=== PATIENT | male | born 1955 | race Caucasian/White ===

== ENCOUNTER 2016-07-18 11:58 | Emergency (ER) | payer MEDICAID ==
[~2016-07-18] VITALS: Ht 157.5 cm; Wt 77.1 kg
[2016-07-18 12:12] VITALS: BP 159/76; PULSE 77; RESP 16; TEMP 98.2; O2SAT 99
--- NOTE | 2016-07-18 12:14 | NUR ---
AMBULATED TO BED 5
--- NOTE | 2016-07-18 12:15 | NUR ---
DR. SALAS AT BEDSIDE
--- NOTE | 2016-07-18 12:20 | NUR ---
Pt presesnt to ed c/o worsening chronic R foot pain from old injury. pT has no acute distress noted.Pt ambulates w/limp.
--- NOTE | 2016-07-18 13:58 | NUR ---
Pt tolerated ortho shoe and gerard wrap.
--- NOTE | 2016-07-18 14:31 | NUR ---
Patient given written and verbal discharge instructions and verbalizes understanding. ER MD discussed with patient the results and treatment provided. Given copies of tests performed in ER. Patient in stable condition. ID arm band removed. Rx of IBUPROFEN, given. Patient educated on pain management and to follow up with PMD. Pain Scale 0/10. Opportunity for questions provided and answered.
[2016-07-18 14:33] VITALS: BP 159/76; PULSE 77; RESP 16; TEMP 98.2; O2SAT 99
== END 2016-07-18 14:31 | disposition home or self-care (01) ==
LOC: SED 11:58
DX: S90.32XA Contusion of left foot, initial encounter (principal); W20.8XXA Other cause of strike by thrown, projected or falling object, initial encounter; Y93.89 Activity, other specified; Y99.8 Other external cause status; Y92.89 Other specified places as the place of occurrence of the external cause
CPT/HCPCS: 99284

== ENCOUNTER 2016-11-02 19:48 | Emergency (ER) | payer MEDICAID ==
[~2016-11-02] VITALS: Ht 167.6 cm; Wt 77.1 kg
[2016-11-02 20:11] VITALS: BP_SYST 128
--- NOTE | 2016-11-02 20:35 | NUR ---
Patient to ER bed H1 to gown for evaluation. Side rails up. Report given to Brian
--- NOTE | 2016-11-02 20:37 | NUR ---
Patient arrived to ED a/o x 4 with c/o pain to the left middle finger. Presents with swelling and bruising to the second knuckle. Patient reports having finger bent back while at work. PMS present to the affected extremitity. Limited range of motion. Reports 5/10 pain. Will continue to monitor.
--- NOTE | 2016-11-02 20:40 | NUR ---
ED HEAVY EQUIPMENT OPERATOR/PAVER Paige at bedside for medical evaluation.
[2016-11-02] MEDS ORDERED: ACETAMINOPHEN 500 MG TABLET PO ONE (20:45)
--- NOTE | 2016-11-02 21:00 | NUR ---
ED DIETARY SERVER Paige at bedside for reassessment.
[2016-11-02 21:17] VITALS: BP_SYST 121
--- NOTE | 2016-11-02 21:17 | NUR ---
Patient given written and verbal discharge instructions and verbalizes understanding. ER MD discussed with patient the results and treatment provided. Patient in stable condition. ID arm band removed. Rx of tylenol given. Patient educated on pain management and to follow up with PMD. Pain Scale 2/10 tolerable for patient. Opportunity for questions provided and answered.
== END 2016-11-02 21:17 | disposition home or self-care (01) ==
LOC: SED 19:48
DX: S63.633A Sprain of interphalangeal joint of left middle finger, initial encounter (principal); X50.9XXA Other and unspecified overexertion or strenuous movements or postures, initial encounter; Y93.89 Activity, other specified; Y92.89 Other specified places as the place of occurrence of the external cause; Y99.8 Other external cause status
CPT/HCPCS: 99284

== ENCOUNTER 2017-07-11 09:57 | Emergency (ER) | payer MEDICAID ==
[~2017-07-11] VITALS: Ht 165.1 cm; Wt 74.8 kg
[2017-07-11 10:00] VITALS: BP_SYST 136
--- NOTE | 2017-07-11 10:00 | NUR ---
BROUGHT BACK TO BED #5 AND TRIAGED. REPORT GIVEN TO AUBREE
--- NOTE | 2017-07-11 10:02 | NUR ---
Pt complains of cough for three weeks. Pt is AAO x 4 and ambulatory. Pt denies fever, nausea, vomiting, and/or diarrhea. No other injuries/complaints per patient or noted.
--- NOTE | 2017-07-11 10:09 | NUR ---
ER Dr. King at bedside examining patient.
[2017-07-11] MEDS ORDERED: ALBUTEROL SULFATE 0.083% 2.5 MG/3 ML VIAL.NEB IH ONE (10:30)
[2017-07-11] MEDS ORDERED: IPRATROPIUM BROM 0.5 MG/2.5 ML VIAL.NEB (ATROVENT) IH ONE (10:30)
--- NOTE | 2017-07-11 10:31 | NUR ---
RT at patient bedside administering breathing treatment. Pt tolerated well.
[2017-07-11 11:27] VITALS: BP_SYST 129
--- NOTE | 2017-07-11 11:27 | NUR ---
Patient given written and verbal discharge instructions and verbalizes understanding. ER MD discussed with patient the results and treatment provided. Patient in stable condition. ID arm band removed. Rx of Zithromax and Robitussin given. Patient educated on pain management and to follow up with PMD. Pain Scale 0. Opportunity for questions provided and answered. Medication side effect fact sheet provided.
== END 2017-07-11 11:27 | disposition home or self-care (01) ==
LOC: SED 09:57
DX: J20.9 Acute bronchitis, unspecified (principal)
CPT/HCPCS: 36415; 71045; 86710; 94640; 99285

== ENCOUNTER 2018-06-03 14:36 | Emergency (ER) | payer MEDICAID ==
[~2018-06-03] VITALS: Ht 162.6 cm; Wt 72.6 kg
[2018-06-03 14:57] VITALS: BP_SYST 130
[2018-06-03] MEDS ORDERED: NACL 0.9% 1,000 ML IV ONE (15:18)
[2018-06-03 15:49] LABS: BASOPHILS % (AUTO) 0.5 % (0.0-2.0); EOSINOPHILS # (AUTO) 0.1 K/uL (0.0-0.4); EOSINOPHILS % (AUTO) 0.8 % (0.0-4.0); HEMATOCRIT 35.8 % (36-54); HEMOGLOBIN 11.7 g/dL (14.0-18.0); LYMPHOCYTES # (AUTO) 3.3 K/uL (1.0-5.5); LYMPHOCYTES % (AUTO) 45.8 % (20.5-51.5); MEAN CORPUSCULAR HEMOGLOBIN 28 pg (27-31); MEAN CORPUSCULAR HGB CONC 33 % (32-36); MEAN CORPUSCULAR VOLUME 85 fL (79.0-98.0); MONOCYTES # (AUTO) 0.5 K/uL (0.0-1.0); MONOCYTES % (AUTO) 6.9 % (1.7-9.3); NEUTROPHILS # (AUTO) 3.4 K/uL (1.8-7.7); PLATELET COUNT (AUTO) 163 K/uL (130-430); RED BLOOD CELL COUNT(AUTO) 4.23 MIL/uL (4.2-6.2); RED CELL DISTRIBUTION WIDTH 14.5 % (9.0-15.0); WHITE BLOOD COUNT (AUTO) 7.3 K/uL (4.8-10.8)
[2018-06-03 16:03] LABS: CALCIUM 7.7 mg/dL (8.4-11.0); CREATININE 0.94 mg/dL (0.55-1.30); POTASSIUM 3.4 mmol/L (3.5-5.1)
[2018-06-03 16:07] LABS: INR 1.1 (0.80-1.20)
[2018-06-03 16:08] LABS: ALBUMIN 2.4 g/dL (3.4-4.8); TOTAL BILIRUBIN 1.1 mg/dL (0.0-1.0)
[2018-06-03 17:00] LABS: BLOOD, URINE 1+ (NEGATIVE); CLARITY/URINE CLEAR (CLEAR); COLOR,URINE YELLOW (YELLOW); GLUCOSE,URINE NEGATIVE (NEGATIVE); KETONES,URINE NEGATIVE (NEGATIVE); LEUKOCYTE ESTERASE ,URINE NEGATIVE (NEGATIVE); NITRITE, URINE NEGATIVE (NEGATIVE); PH,URINE 5.5 (5.0-8.0); PROTEIN URINE 1+ (NEGATIVE); UROBILINOGEN,URINE 0.2 (0.2-1.0)
[2018-06-03 17:06] LABS: BILIRUBIN,URINE 1+ (NEGATIVE)
[2018-06-03 17:14] VITALS: BP_SYST 116
[2018-06-03 17:15] LABS: BACTERIA,URINE FEW /HPF (None Seen); MUCUS,URINE None Seen /LPF (None Seen); RBC,URINE 0-3 /HPF (0-3); WBC,URINE 0-3 /HPF (0-3)
== END 2018-06-03 17:14 | disposition home or self-care (01) ==
LOC: SED 14:36
DX: G62.89 Other specified polyneuropathies (principal); I10 Essential (primary) hypertension
CPT/HCPCS: 36415; 71045; 80053; 81000; 82550; 83690; 84484; 85025; 85610; 85730; 93005; 99284; J7030

== ENCOUNTER 2018-07-26 16:53 | Emergency (ER) | payer MEDICARE, MEDICAID ==
[~2018-07-26] VITALS: Ht 165.1 cm; Wt 63.5 kg
[2018-07-26 16:56] VITALS: BP_SYST 140
--- NOTE | 2018-07-26 17:03 | NUR ---
patient AOx4 from home with c/o SOB. patient can speak in complete sentences without sob. patient lung alicea are CTA bilaterally. patient has a fever. patient has no other complaint or injury.
--- NOTE | 2018-07-26 17:03 | NUR ---
Patient to ER bed 06 to gown for evaluation. Side rails up.
--- NOTE | 2018-07-26 17:04 | NUR ---
ER at bedside examining patient.
[2018-07-26 17:28] VITALS: BP_SYST 140
--- NOTE | 2018-07-26 17:28 | NUR ---
Patient given written and verbal discharge instructions and verbalizes understanding. ER MD discussed with patient the results and treatment provided. Patient in stable condition. ID arm band removed. Rx of Medrol Dosepak, albuterol given. Patient educated on pain management and to follow up with PMD. Pain Scale 0/10. Opportunity for questions provided and answered. Medication side effect fact sheet provided.
== END 2018-07-26 17:28 | disposition home or self-care (01) ==
LOC: SED 16:53
DX: J45.901 Unspecified asthma with (acute) exacerbation (principal); I10 Essential (primary) hypertension
CPT/HCPCS: 99283

== ENCOUNTER 2018-10-02 15:55 | Inpatient (IN) | payer MEDICAID, MEDICARE ==
[~2018-10-02] VITALS: Ht 165.1 cm; Wt 54.0 kg
[~2018-10-02 15:55] MED LIST: AZAT50TA18 PO; METR500T PO; PEPTAB PO; PRED10TA PO; PRO40 PO; VIT1TABL67 PO
[2018-10-02 16:12] VITALS: BP_SYST 118
[2018-10-02] MEDS ORDERED: NACL 0.9% 1,000 ML IV ONE ×2 (17:00→18:30)
[2018-10-02 17:32] LABS: BASOPHILS # (AUTO) 0.1 K/uL (0.0-0.2); BASOPHILS % (AUTO) 1.3 % (0.0-2.0); HEMATOCRIT 31.8 % (36-54); HEMOGLOBIN 10.6 g/dL (14.0-18.0); LYMPHOCYTES # (AUTO) 1.3 K/uL (1.0-5.5); LYMPHOCYTES % (AUTO) 17.5 % (20.5-51.5); MEAN CORPUSCULAR HEMOGLOBIN 29 pg (27-31); MEAN CORPUSCULAR HGB CONC 33 % (32-36); MEAN CORPUSCULAR VOLUME 87 fL (79.0-98.0); MONOCYTES # (AUTO) 0.6 K/uL (0.0-1.0); MONOCYTES % (AUTO) 7.7 % (1.7-9.3); NEUTROPHILS # (AUTO) 5.3 K/uL (1.8-7.7); NEUTROPHILS % (AUTO) 73.5 % (40.0-70.0); PLATELET COUNT (AUTO) 130 K/uL (130-430); RED BLOOD CELL COUNT(AUTO) 3.68 MIL/uL (4.2-6.2); RED CELL DISTRIBUTION WIDTH 22.4 % (9.0-15.0); WHITE BLOOD COUNT (AUTO) 7.2 K/uL (4.8-10.8)
[2018-10-02 17:49] LABS: CALCIUM 8.1 mg/dL (8.4-11.0); CREATININE 0.95 mg/dL (0.55-1.30); POTASSIUM 4.8 mmol/L (3.5-5.1)
[2018-10-02 17:59] LABS: INR 1.3 (0.80-1.20); PROTHROMBIN TIME 13.2 SECS (9.5-12.5)
[2018-10-02 18:03] LABS: ALBUMIN 1.3 g/dL (3.4-4.8)
[2018-10-02] MEDS ORDERED: cefTRIAXone 1 GM in D5W 50 ML IV ONE (18:30)
[2018-10-02] MEDS ORDERED: DOXY-168 PO (18:45)
[2018-10-02] MEDS ORDERED: cefTRIAXone 1 GM VIAL ONE (18:46)
[2018-10-02 20:00] VITALS: BP_SYST 108
[2018-10-02] MEDS ORDERED: ONDANSETRON HCL 4 MG/2 ML VIAL IVP PRN (20:45)
[2018-10-02] MEDS ORDERED: MORPHINE 4 MG/ML INJ. SYRINGE IVP PRN (20:45)
[2018-10-02] MEDS ORDERED: METOCLOPRAMIDE HCL 10 MG/2 ML VIAL IVP PRN (20:45)
[2018-10-02] MEDS ORDERED: MORPHINE 2 MG/ML INJ. SYRINGE IVP PRN (20:45)
[2018-10-02] MEDS ORDERED: LEVOFLOXACIN 500 MG/D5W 100 ML IV SCH (21:00)
[2018-10-02] MEDS: D5NS 1,000 ML IV SCH (21:22)
[2018-10-02] MEDS ORDERED: LEVOFLOXACIN 500 MG/D5W 100 ML IV ONE (21:34)
[2018-10-02] MEDS ORDERED: metroNIDAZOLE 500 mg/NS 200 ML IV ONE (21:35)
[2018-10-02] MEDS: metroNIDAZOLE 500 mg/NS 100 ML IV SCH (22:16)
[2018-10-03 01:19] VITALS: BP_SYST 109
[2018-10-03] MEDS: metroNIDAZOLE 500 mg/NS 100 ML IV SCH ×3 (05:12→22:00)
[2018-10-03 07:09] LABS: BASOPHILS # (AUTO) 0.1 K/uL (0.0-0.2); BASOPHILS % (AUTO) 0.8 % (0.0-2.0); HEMATOCRIT 30.7 % (36-54); HEMOGLOBIN 10.1 g/dL (14.0-18.0); LYMPHOCYTES # (AUTO) 1.4 K/uL (1.0-5.5); LYMPHOCYTES % (AUTO) 19.9 % (20.5-51.5); MEAN CORPUSCULAR HEMOGLOBIN 29 pg (27-31); MEAN CORPUSCULAR HGB CONC 33 % (32-36); MEAN CORPUSCULAR VOLUME 87 fL (79.0-98.0); MONOCYTES # (AUTO) 0.2 K/uL (0.0-1.0); MONOCYTES % (AUTO) 3.4 % (1.7-9.3); NEUTROPHILS # (AUTO) 5.4 K/uL (1.8-7.7); NEUTROPHILS % (AUTO) 75.9 % (40.0-70.0); PLATELET COUNT (AUTO) 136 K/uL (130-430); RED BLOOD CELL COUNT(AUTO) 3.52 MIL/uL (4.2-6.2); RED CELL DISTRIBUTION WIDTH 23.4 % (9.0-15.0); WHITE BLOOD COUNT (AUTO) 7.2 K/uL (4.8-10.8)
[2018-10-03 07:46] LABS: ALBUMIN 1.2 g/dL (3.4-4.8); CALCIUM 7.5 mg/dL (8.4-11.0); CREATININE 0.88 mg/dL (0.55-1.30); POTASSIUM 4.4 mmol/L (3.5-5.1); TOTAL BILIRUBIN 7.7 mg/dL (0.0-1.0)
[2018-10-03 08:00] VITALS: BP_SYST 106
[2018-10-03] MEDS ORDERED: SPIRONOLACTONE 50 MG TABLET (ALDACTONE) PO ONE (10:15)
[2018-10-03 12:45] VITALS: BP_SYST 102
[2018-10-03] MEDS: D5NS 1,000 ML IV SCH (16:00)
[2018-10-03 16:15] VITALS: BP_SYST 107
[2018-10-03 20:00] VITALS: BP_SYST 108
[2018-10-03] MEDS: LEVOFLOXACIN 250 MG/D5W 50 ML IV SCH (22:03)
[2018-10-04 00:37] VITALS: BP_SYST 113
[2018-10-04] MEDS: D5NS 1,000 ML IV SCH (00:40)
[2018-10-04] MEDS: metroNIDAZOLE 500 mg/NS 100 ML IV SCH ×3 (06:31→23:09)
[2018-10-04 08:11] VITALS: BP_SYST 118
[2018-10-04] MEDS: SPIRONOLACTONE 50 MG TABLET (ALDACTONE) PO SCH (08:41)
[2018-10-04 10:45] VITALS: BP_SYST 118
[2018-10-04] MEDS ORDERED: SPIR100T PO (10:57)
[2018-10-04] MEDS ORDERED: FURO-149 PO (11:03)
[2018-10-04] MEDS ORDERED: FUROSEMIDE 100 MG in D5W 90 ML IV SCH (11:30)
[2018-10-04 14:42] VITALS: BP_SYST 118
[2018-10-04 17:21] VITALS: BP_SYST 128
[2018-10-04 21:41] VITALS: BP_SYST 113
[2018-10-04] MEDS: LEVOFLOXACIN 250 MG/D5W 50 ML IV SCH (21:46)
[2018-10-05] VITALS: BP_SYST 109
[2018-10-05] MEDS: metroNIDAZOLE 500 mg/NS 100 ML IV SCH ×3 (06:06→22:34)
[2018-10-05 08:00] VITALS: BP_SYST 105
[2018-10-05] MEDS: SPIRONOLACTONE 50 MG TABLET (ALDACTONE) PO SCH (08:47)
[2018-10-05 11:23] LABS: BASOPHILS # (AUTO) 0.1 K/uL (0.0-0.2); BASOPHILS % (AUTO) 1.2 % (0.0-2.0); HEMATOCRIT 32.2 % (36-54); HEMOGLOBIN 10.6 g/dL (14.0-18.0); LYMPHOCYTES % (AUTO) 14.7 % (20.5-51.5); MEAN CORPUSCULAR HEMOGLOBIN 29 pg (27-31); MEAN CORPUSCULAR HGB CONC 33 % (32-36); MEAN CORPUSCULAR VOLUME 88 fL (79.0-98.0); MONOCYTES # (AUTO) 0.3 K/uL (0.0-1.0); MONOCYTES % (AUTO) 4.3 % (1.7-9.3); NEUTROPHILS # (AUTO) 5.2 K/uL (1.8-7.7); NEUTROPHILS % (AUTO) 79.8 % (40.0-70.0); PLATELET COUNT (AUTO) 106 K/uL (130-430); RED BLOOD CELL COUNT(AUTO) 3.66 MIL/uL (4.2-6.2); RED CELL DISTRIBUTION WIDTH 23.7 % (9.0-15.0); WHITE BLOOD COUNT (AUTO) 6.5 K/uL (4.8-10.8)
[2018-10-05 11:42] LABS: CALCIUM 7.4 mg/dL (8.4-11.0); CREATININE 1.21 mg/dL (0.55-1.30); POTASSIUM 3.2 mmol/L (3.5-5.1)
[2018-10-05 12:00] VITALS: BP_SYST 106
[2018-10-05 16:09] VITALS: BP_SYST 98
[2018-10-05] MEDS ORDERED: FUROSEMIDE 100 MG in D5W 90 ML IV SCH (16:19)
[2018-10-05] MEDS ORDERED: POTASSIUM CHLORIDE 20 MEQ TAB.PRT.SR PO ONE (16:30)
[2018-10-05] MEDS ORDERED: ALBUMIN HUMAN 25% 50 ML IV ONE (16:30)
[2018-10-05 20:00] VITALS: BP_SYST 99
[2018-10-05] MEDS: LEVOFLOXACIN 250 MG/D5W 50 ML IV SCH (20:43)
[2018-10-05 22:53] VITALS: BP_SYST 101
[2018-10-06] MEDS: metroNIDAZOLE 500 mg/NS 100 ML IV SCH ×2 (05:08→14:08)
[2018-10-06 08:00] VITALS: BP_SYST 102
[2018-10-06] MEDS: SPIRONOLACTONE 50 MG TABLET (ALDACTONE) PO SCH (09:16)
[2018-10-06 11:43] LABS: CALCIUM 7.7 mg/dL (8.4-11.0); CREATININE 1.45 mg/dL (0.55-1.30); POTASSIUM 3.7 mmol/L (3.5-5.1)
[2018-10-06 12:46] VITALS: BP_SYST 96
[2018-10-06 15:39] VITALS: BP_SYST 100
[2018-10-06 16:24] VITALS: BP_SYST 98
== END 2018-10-06 19:28 | disposition short-term general hospital (02) ==
LOC: SED 15:55 → SMU 18:56
PROVIDERS: ADMIT Internal Medicine Hospice and Palliative Medicine; ATTEND Internal Medicine Hospice and Palliative Medicine
DX: K74.69 Other cirrhosis of liver (principal); R18.8 Other ascites; E87.70 Fluid overload, unspecified; E88.09 Other disorders of plasma-protein metabolism, not elsewhere classified; K56.7 Ileus, unspecified; E87.1 Hypo-osmolality and hyponatremia; J44.9 Chronic obstructive pulmonary disease, unspecified; K75.4 Autoimmune hepatitis; I10 Essential (primary) hypertension; K74.3 Primary biliary cirrhosis; Z91.018 Allergy to other foods; Z79.899 Other long term (current) drug therapy
CPT/HCPCS: 36415; 71045; 76857; 80048; 80053; 82140-TC; 83605; 83690-TC; 85025; 85610-TC; 87081; 93005; 96361; 96365; 99285; J0696; J1940; J1956; J3490; J7042; J7060; P9046

== ENCOUNTER 2018-10-13 17:17 | Inpatient (IN) | payer MEDICAID, MEDICARE ==
[~2018-10-13] VITALS: Ht 165.1 cm; Wt 50.8 kg
[~2018-10-13 17:17] MED LIST changes: +DOXY-168 PO; +FURO-149 PO; +SPIR100T PO
--- NOTE | 2018-10-13 17:21 | NUR ---
Patient to ER bed 01 to gown for evaluation. Side rails up.
[2018-10-13 17:22] VITALS: BP_SYST 114
--- NOTE | 2018-10-13 17:30 | NUR ---
Patient arrived via EMS with c/c of generalized weakness. Patient has history of liver cirrhosis and liver cancer who presents with a 1 day history of gradual onset, moderate, generalized weakness. Patient states that family brought him into the ED for an evaluation. Denies any cough, nausea, vomiting, diarrhea or any other complaints today. Patient was just discharged from our facility 10/06/18 and transferred [facility], discharge from [place] yesterday. Patient appears jaundiced cachexia and emaciated. Patient appears weak and lethargic. Will continue to follow up and monitor.
--- NOTE | 2018-10-13 17:32 | NUR ---
ER at bedside examining patient.
--- NOTE | 2018-10-13 18:04 | NUR ---
FAMILY AT BEDSIDE.
[2018-10-13 18:19] LABS: BASOPHILS # (AUTO) 0.1 K/uL (0.0-0.2); BASOPHILS % (AUTO) 1.4 % (0.0-2.0); EOSINOPHILS % (AUTO) 0.1 % (0.0-4.0); HEMATOCRIT 28.2 % (36-54); HEMOGLOBIN 9.3 g/dL (14.0-18.0); LYMPHOCYTES # (AUTO) 1.7 K/uL (1.0-5.5); MEAN CORPUSCULAR HEMOGLOBIN 31 pg (27-31); MEAN CORPUSCULAR HGB CONC 33 % (32-36); MEAN CORPUSCULAR VOLUME 94 fL (79.0-98.0); MONOCYTES # (AUTO) 0.2 K/uL (0.0-1.0); MONOCYTES % (AUTO) 5.4 % (1.7-9.3); NEUTROPHILS # (AUTO) 2.6 K/uL (1.8-7.7); NEUTROPHILS % (AUTO) 56.1 % (40.0-70.0); RED BLOOD CELL COUNT(AUTO) 3.02 MIL/uL (4.2-6.2); RED CELL DISTRIBUTION WIDTH 27.8 % (9.0-15.0); WHITE BLOOD COUNT (AUTO) 4.5 K/uL (4.8-10.8)
[2018-10-13 18:40] LABS: INR 1.4 (0.80-1.20); PROTHROMBIN TIME 13.8 SECS (9.5-12.5)
[2018-10-13 18:41] LABS: PLATELET COUNT (AUTO) 62 K/uL (130-430)
--- NOTE | 2018-10-13 18:43 | NUR ---
Patient resting aware we are waiting for results pending. Patients son at bedside. Will continue to follow up and monitor.
[2018-10-13 18:51] LABS: CALCIUM 8.4 mg/dL (8.4-11.0); CREATININE 1.22 mg/dL (0.55-1.30); POTASSIUM 3.4 mmol/L (3.5-5.1)
[2018-10-13 18:56] LABS: ALBUMIN 2.3 g/dL (3.4-4.8)
--- NOTE | 2018-10-13 19:10 | NUR ---
Pt cachetic with yellowing of the skin and sclera of eyes. Pt resting quietly with VSS. Pt easily awakened, becomes alert, responsive, able to answer questions appropriately, AAOx4, denies c/o pain or discomfort. Pt quickly drifts back to sleep. Pt's son at bedside and states that pt was D/C from [place] yesterday with an Albumin of 2.8 and instructed eat a lot to maintain albumin level WNL. However, pt has been sleeping excessively and not eating. Son states that pt is afraid to eat because it's difficult for him to swallow and he falls asleep with food in his mouth. Per son, pt is here to get his albumin level WNL in preparation for a flight to [place] on Tuesday or Tuesday to receive medical care from his PMD there. Son states that he was informed by his PMD in [place] that pt.'s condition can be cured there. However, son was informed that [place] the states pt needs a liver transplant. Per son, pt was dx per bx with Autoimmune Hepatitis.
--- NOTE | 2018-10-13 20:08 | NUR ---
Dr. Vasquez at bedside to discuss lab results and POC.
[2018-10-13] MEDS ORDERED: ONDANSETRON HCL 4 MG/2 ML VIAL IVP ONE (20:15)
[2018-10-13] MEDS ORDERED: NACL 0.9% 1,000 ML IV ONE (20:15)
[2018-10-13] MEDS ORDERED: D5W 1,000 ML IV ONE (20:30)
--- NOTE | 2018-10-13 20:33 | NUR ---
Medication reconciliation completed with information provided by patient . Any prior medication reconciliation on file was reviewed and corrected.
--- NOTE | 2018-10-13 22:00 | NUR ---
Pt.'s son, Radha, provides phone number ([phone]).
--- NOTE | 2018-10-13 23:00 | NUR ---
Pt resting quietly, easily awakened, coherent speech, denies c/o pain or discomfort and no needs verbalized at this time. VSS.
--- NOTE | 2018-10-14 00:25 | NUR ---
Note katelynn in EDM - 10/14/18 at 0032 by SDEDAJ Patient will be admitted to care of []. Admitted to [] unit. Will go to room []. Belongings list completed. Summary report printed. Report will be given at bedside.
--- NOTE | 2018-10-14 00:25 | NUR ---
Patient will be admitted to care of Dr. Andrew Maldonado. Admitted to Med/Surg unit. Will go to room 121C. Belongings list completed. Summary report printed. Phone report given to JANA Mims.
--- NOTE | 2018-10-14 00:44 | NUR ---
ADMISSION: The patient, CHIOMA ZHANG, 63 y/o, M admitted by FOSTER GREENE MD, was given written information regarding hospital policies, unit procedures and contact persons.
[2018-10-14 00:51] VITALS: BP_SYST 122
--- NOTE | 2018-10-14 02:15 | NUR ---
ROUNDS Assisted pt with bedside commode and back to bed, pt tolerated well. Offered food or snack but pt refused. No complains of pain and no signs of acute distress or SOB noted. Encouraged to use call light when needed. Safety precautions in place with 3 side rails up, wheels locked, bed alarm on and in lowest position. Call light with pt. Will continue to monitor.
--- NOTE | 2018-10-14 04:18 | NUR ---
ROUNDS PT is resting in bed with both eyes closed, with visible chest rise and fall with unlabored breathing noted. No complains of pain and no signs of acute distress or SOB noted. Safety precautions in place and call light with pt. Will continue to monitor.
--- NOTE | 2018-10-14 04:35 | NUR ---
CONSULTATION PAGED/CALLED Reason for Consultation: HEPATITIS Person Who was Notified: MYRA Consulting Physician: BALA Loan Review Officer Specialty: GI Ordering Physician: Andrew GREENE
--- NOTE | 2018-10-14 06:28 | NUR ---
CLOSING NOTES Pt is resting in bed with both eyes closed, with visible chest rise and fall with unlabored breathing noted. No complains of pain or discomfort at this time. No signs of acute distress or SOB noted. All needs attended throughout the shift. Safety precautions maintained with 3 side rails up, bed alarm on, wheels locked and in lowest position. Call light with pt. Will endorse to day shift nurse.
--- NOTE | 2018-10-14 07:36 | NUR ---
Opening Note received bedside SBAR report from rn shift mgr RN, patient resting in bed, respirations even and unlabored on room air, no acute distress noted, educated patient on use of call light and asked to call for assistance, patient verbalized understanding, call light in reach, bed in low and locked position, bed alarm on.
[2018-10-14 08:00] VITALS: BP_SYST 119
--- NOTE | 2018-10-14 09:43 | NUR ---
Nutrition Update [place] Scale 16 noted. Pt admitted for hepatitis. Diet: regular, mechanical soft BMI: 18.8 kg/m2 RD to follow per nutrition care standards.
--- NOTE | 2018-10-14 09:48 | NUR ---
RN Rounds assisted patient to reposition, patient tolerated well, patient denies any pain, no acute distress noted.
[2018-10-14] MEDS ORDERED: ONDANSETRON HCL 4 MG/2 ML VIAL IVP PRN (10:00)
[2018-10-14] MEDS ORDERED: LORazepam 2 MG/ML VIAL IVP PRN (10:00)
--- NOTE | 2018-10-14 10:04 | NUR ---
CONSULT NEPHROLOGY HYPER[address]IA DR DACOSTA [phone] DR MARIN HEEL BURNISHER S/[facility]
--- NOTE | 2018-10-14 10:25 | NUR ---
Spoke with Physician spoke with Dr. Connelly, informed her of AM labs, per Dr. Connelly she will be in today to see the patient.
[2018-10-14 11:22] VITALS: BP_SYST 121
--- NOTE | 2018-10-14 12:05 | NUR ---
RN Rounds patient resting in bed, respirations even and unlabored on room air, no acute distress noted, patient denies any pain.
[2018-10-14] MEDS: D5/0.45 NS 1,000 ML IV SCH ×2 (12:20→23:12)
--- NOTE | 2018-10-14 14:16 | NUR ---
RN Rounds patient resting in bed, respirations even and unlabored on room air, patient denies any pain, no acute distress noted.
[2018-10-14 15:50] VITALS: BP_SYST 111
--- NOTE | 2018-10-14 16:01 | NUR ---
Wound Care educated patient on purpose and procedure for wound care, patient verbalized understanding, wound care completed, patient tolerated well, patient denies any pain during or after wound care, see MST shift assessment for wound care.
--- NOTE | 2018-10-14 17:39 | NUR ---
Spoke with patient and patients family patient resting in bed, patient denies any pain, no acute distress noted, patients son and at bedside, updated them on patients plan of care and the medications that are scheduled for tonight and tomorrow, patient and patients family verbalized understanding.
--- NOTE | 2018-10-14 18:53 | NUR ---
Physician Rounds Dr. Woodson at bedside speaking with patient and patients family.
--- NOTE | 2018-10-14 19:10 | NUR ---
Closing Note bedside SBAR report given to receiving RN, patient resting in bed, patient denies any pain, patients family at bedside, educated patient on use of call light and asked to call for assistance, patient verbalized understanding, call light in reach, bed in low and locked position, bed alarm on, care endorsed to shift mgr RN.
--- NOTE | 2018-10-14 19:35 | NUR ---
ROUNDS PATIENT RESTING COMFORTABLY IN BED, NOT IN DISTRESS, ON ROOM AIR, DENIES ANY PAIN AND DISCOMFORT AT THIS TIME. ASSESSMENT DONE AND DOCUMENTED. SEE FLOWSHEET. NEEDS ATTENDED TO. SAFETY MEASURES IN PLACED. BED IN LOW AND LOCKED POSITION. CALL LIGHT PLACED WITHIN REACH.
[2018-10-14 20:00] VITALS: BP_SYST 118
[2018-10-14] MEDS: DOXYCYCLINE HYCLATE 100 MG CAPSULE PO SCH (20:11)
[2018-10-14] MEDS: ALBUMIN HUMAN 25% 50 ML IV SCH ×2 (20:11→23:09)
[2018-10-14] MEDS: PANTOPRAZOLE SODIUM 40 MG TAB PO SCH (20:11)
--- NOTE | 2018-10-14 21:12 | NUR ---
MEDICATION DUE MEDICATIONS GIVEN ORDERED, TOLERATED WELL. WILL CONTINUE TO MONITOR.
[2018-10-15 00:02] VITALS: BP_SYST 116
--- NOTE | 2018-10-15 04:10 | NUR ---
ROUNDS PATIENT AWAKE, VITALS STABLE, DENIES ANY PAIN AND DISCOMFORT AT THIS TIME. NEEDS ATTENDED TO. WILL CONTINUE TO MONITOR.
[2018-10-15] MEDS: ALBUMIN HUMAN 25% 50 ML IV SCH (04:23)
[2018-10-15] MEDS: D5/0.45 NS 1,000 ML IV SCH ×2 (05:52→15:52)
--- NOTE | 2018-10-15 06:02 | NUR ---
ROUNDS PATIENT AWAKE, VITALS STABLE, DENIES ANY PAIN AND DISCOMFORT AT THIS TIME. ALL NEEDS ATTENDED TO. SAFETY AND FALL PRECAUTION MEASURES MAINTAINED. CALL LIGHT PLACED WITHIN REACH.
[2018-10-15 07:06] LABS: HEMATOCRIT 23.6 % (36-54); HEMOGLOBIN 7.9 g/dL (14.0-18.0); MEAN CORPUSCULAR HEMOGLOBIN 32 pg (27-31); MEAN CORPUSCULAR HGB CONC 33 % (32-36); MEAN CORPUSCULAR VOLUME 96 fL (79.0-98.0); RED BLOOD CELL COUNT(AUTO) 2.47 MIL/uL (4.2-6.2); RED CELL DISTRIBUTION WIDTH 29.8 % (9.0-15.0); WHITE BLOOD COUNT (AUTO) 3.5 K/uL (4.8-10.8)
--- NOTE | 2018-10-15 07:18 | NUR ---
Opening Note received bedside SBAR report from continuous conveyor screen drier RN, patient resting in bed, respirations even and unlabored on room air, no acute distress noted, room close to nurses station, educated patient on use of call light and asked to call for assistance, patient verbalized understanding, call light in reach, bed in low and locked position, bed alarm on.
[2018-10-15 07:19] LABS: PLATELET COUNT (AUTO) 45 K/uL (130-430)
--- NOTE | 2018-10-15 07:30 | NUR ---
PAGED PAGED FOSTER LEDEZMA AT [phone] SPOKE WITH PANFILO.
[2018-10-15 08:00] VITALS: BP_SYST 114
--- NOTE | 2018-10-15 08:01 | NUR ---
Spoke with Physician spoke with Dr. Patricia Maldonado, informed him of critical lab platelets 45, no new orders.
[2018-10-15] MEDS: FUROSEMIDE 40 MG TABLET PO SCH (08:36)
--- NOTE | 2018-10-15 08:40 | NUR ---
Medication//Incontinent/Wound Care educated patient on use and side effects of all medications, patient verbalized understanding, patient refusing all medications other than lasix, patient tolerated medication administration well, patient incontinent of bladder, patient cleaned, linen and gown changed, educated patient on purpose and procedure for wound care, patient verbalized understanding, wound care completed, patient tolerated well, patient denies any pain during or after wound care, see MST shift assessment for wound care, no acute distress noted.
[2018-10-15 08:59] LABS: ALBUMIN 2.3 g/dL (3.4-4.8); CALCIUM 8.2 mg/dL (8.4-11.0); CREATININE 1.15 mg/dL (0.55-1.30); PHOSPHORUS 2.7 mg/dL (2.7-4.5)
[2018-10-15] MEDS: PANTOPRAZOLE SODIUM 40 MG TAB PO SCH ×2 (09:00→21:00)
[2018-10-15] MEDS ORDERED: NON-FORMULARY MEDICATION (Vit D3 & K/Berberine Hcl/Hops (Ostera Tablet) 1 EACH) PO SCH (09:00)
[2018-10-15] MEDS: azaTHIOprine 50 MG TABLET PO SCH (09:00)
[2018-10-15] MEDS: DOXYCYCLINE HYCLATE 100 MG CAPSULE PO SCH ×2 (09:00→21:00)
[2018-10-15] MEDS: SPIRONOLACTONE 50 MG TABLET (ALDACTONE) PO SCH (09:00)
[2018-10-15] MEDS: PREDNISONE 10 MG TABLET PO SCH (09:00)
[2018-10-15 09:38] LABS: ATYPICAL LYMPHOCYTES % 0 % (0-0); BAND % (MANUAL) 0 % (0-6); BASOPHILS % (MANUAL) 0 % (0-2); EOSINOPHILS % (MANUAL) 2 % (0-7); LYMPHOCYTES % (MANUAL) 34 % (20-46); MONOCYTES % (MANUAL) 2 % (0-11)
[2018-10-15 10:39] LABS: POTASSIUM 2.9 mmol/L (3.5-5.1)
--- NOTE | 2018-10-15 10:40 | NUR ---
PAGED PAGED FOSTER LEDEZMA AT [phone] SPOKE WITH HEATHER.
[2018-10-15 10:43] LABS: TOTAL BILIRUBIN 24.1 mg/dL (0.0-1.0)
--- NOTE | 2018-10-15 10:55 | NUR ---
Bedside Commode/Physical Therapy patient requesting to use bedside commode, assisted patient to bedside commode, voided x1, patient assisted back to bed, physical therapy at bedside working with patient, family at bedside.
--- NOTE | 2018-10-15 11:19 | NUR ---
Spoke with physician spoke with Dr. Woodson, informed him of ammonia 40, new medication orders received. Addendum: 10/15/18 at 1158 by Xochitl Buchanan RN informed TENNILLE Posada that Dr. Woodson would like for her to call him regarding patient transfer, understanding verbalized.
[2018-10-15 12:39] VITALS: BP_SYST 105
--- NOTE | 2018-10-15 12:52 | NUR ---
PAGED PAGED FOSTER LEDEZMA AT [phone] SPOKE WITH KRISH.
--- NOTE | 2018-10-15 13:14 | NUR ---
Spoke with Physician spoke with Dr. Patricia Maldonado, informed him of critical labs potassium 2.9 and bilirubin 24.1, informed him that patients urine is dark in color, new orders received, verified with telephone read back.
[2018-10-15] MEDS ORDERED: KCL 40 mEq in 100 mL (PREMIX) 100 ML IV ONE (13:15)
--- NOTE | 2018-10-15 13:15 | NUR ---
Spoke with patient and patients family educated patient and patients family on use and side effects of potassium replacement, patient and patients family verbalized understanding, patient resting in bed, no acute distress noted, patient denies any pain.
[2018-10-15] MEDS ORDERED: POTASSIUM CHLORIDE 40 MEQ in NS 250 ML IV ONE (13:30)
--- NOTE | 2018-10-15 13:30 | NUR ---
DC Planning: s/w dr. Woodson, with his request to transfer pt to liver transplant center, [facility] or any accepting hospital. He stated the pt has acute liver failure, encephalopathy with elevated LFT, total Bilirubin ( please refer the the md's today progress note for details). The md made aware that CM will contracct [facility] for the contracted [facility]. Addendum: 10/15/18 at 1614 by Albino Lindsay RN late entry: s/w TENNILLE Wills oncall at [facility] # [phone], request assistance to transfer pt. to contracted [facility] for possible liver transplant. Per Johann: she does not know whether there is a contracted tertiary . She asked to call back to speak with TENNILLE Smith for [facility] tomorrow at # [phone].
--- NOTE | 2018-10-15 15:01 | NUR ---
Bedside Commode patient requesting to use bedside commode, patient assisted to use bedside commode, voided x1, patient assisted back to bed, patient resting in bed, no acute distress noted.
[2018-10-15 16:09] VITALS: BP_SYST 143
--- NOTE | 2018-10-15 16:14 | NUR ---
DC Planning: Tertiary hp for liver transplant: 1. [facility]: s/w John/transfer ctr # [phone], not contracted with [facility]. The facility does not have liver transplant services. 2. Jayla Cher[facility] ([facility]): s/w Gi/transfer ctr # [phone], and fax the referral package to # [phone]. She will call nursing station after 1630 for accepting decision and instruction to transfer if accepted. 3. Tito Murgu[facility]: s/w Bois/transfer ctr # [phone] opt #3 and fax the referral package to # [phone]. Then I was transferred to kiran Richey coordinator for liver transplant team # [phone]. I provided clinical information which she stated " there is no red flags: the pt's vital is stable, there is no active bleeding". She will forward the info to dr. Keyana Zavala for evaluation. If not accepted, she will refer the pt to a councillor for further evaluation and f/u. >> CM LVM to pt's son, Julius # [phone] and to spouse # [phone] regarding the transfer to tertiary . >> RNXochitl made aware.
[2018-10-15 16:17] LABS: BILIRUBIN,URINE 1+ (NEGATIVE); BLOOD, URINE 2+ (NEGATIVE); CLARITY/URINE CLEAR (CLEAR); COLOR,URINE YELLOW (YELLOW); GLUCOSE,URINE NEGATIVE (NEGATIVE); KETONES,URINE NEGATIVE (NEGATIVE); LEUKOCYTE ESTERASE ,URINE NEGATIVE (NEGATIVE); NITRITE, URINE NEGATIVE (NEGATIVE); PROTEIN URINE NEGATIVE (NEGATIVE); UROBILINOGEN,URINE 0.2 (0.2-1.0)
[2018-10-15 16:26] LABS: BACTERIA,URINE FEW /HPF (None Seen); RBC,URINE 0-3 /HPF (0-3); WBC,URINE NONE SEEN /HPF (0-3)
[2018-10-15 16:28] LABS: MUCUS,URINE None Seen /LPF (None Seen)
--- NOTE | 2018-10-15 16:39 | NUR ---
Repositioned assisted patient to reposition, patient tolerated well, no acute distress noted, patient denies any pain.
--- NOTE | 2018-10-15 17:34 | NUR ---
Bedside Commode patient requesting to use bedside commode, assisted patient to bedside commode, patient voided x1, assisted patient back to bed, patient resting in bed, no acute distress noted.
--- NOTE | 2018-10-15 17:58 | NUR ---
DC Planning: Received call from [facility] transfer ctr: " the pt is medically accepted, but is pending insurance approval/financial clearance for the admission." The center will also need the transfer agreement which will be process in am. Addendum: 10/16/18 at 1035 by Albino Lindsay RN Received call this am from [facility] transfer ctr: unable to accept/admit the pt due to financially declined from insurance.
--- NOTE | 2018-10-15 18:36 | NUR ---
Spoke with patient and patients family patient and patients family agreeable for transfer to tertiary hospital, patients , son, and daughter at bedside.
--- NOTE | 2018-10-15 18:49 | NUR ---
D/C planning spoke with Shannan from [facility], per Shannan patient is not accepted due to insurance ineligibility, per Shannan she will fax over paperwork showing insurance ineligibility to nurses station and to . Addendum: 10/15/18 at 1923 by Xochitl Buchanan RN patient and patients family made aware, patient and patients family verbalized understanding.
--- NOTE | 2018-10-15 19:22 | NUR ---
Closing Note bedside SBAR report given to receiving RN, patient resting in bed, patient denies any pain, no acute distress noted, patients family at bedside, educated patient on use of call light and asked to call for assistance, patient verbalized understanding, call light in reach, bed in low and locked position, bed alarm on, care endorsed to prepared foods associate RN.
--- NOTE | 2018-10-15 19:35 | NUR ---
ROUNDS PATIENT RESTING COMFORTABLY IN BED, NOT IN DISTRESS, ON ROOM AIR, DENIES ANY PAIN AND DISCOMFORT AT THIS TIME. ASSESSMENT DONE AND DOCUMENTED. SEE FLOWSHEET. NEEDS ATTENDED TO. SAFETY AND FALL PRECAUTION MEASURES IN PLACED. BED IN LOW AND LOCKED POSITION. CALL LIGHT PLACED WITHIN REACH.
[2018-10-15 20:00] VITALS: BP_SYST 115
[2018-10-15] MEDS: RIFAXIMIN 550 MG TABLET PO SCH (21:00)
--- NOTE | 2018-10-15 21:10 | NUR ---
MEDICATION PATIENT REFUSED DUE MEDICATIONS AT THIS TIME. RISKS AND BENEFITS EXPLAINED. NEEDS ATTENDED TO. WILL CONTINUE TO MONITOR.
--- NOTE | 2018-10-16 00:12 | NUR ---
PATIENT RESTING: Patient resting quietly. No acute distress noted. Vital signs within normal range.
[2018-10-16 00:25] VITALS: BP_SYST 120
--- NOTE | 2018-10-16 02:13 | NUR ---
ROUNDS PATIENT ASLEEP, RESPIRATIONS EVEN AND UNLABORED, NO SOB NOR PAIN AND DISCOMFORT NOTED. WILL CONTINUE TO MONITOR.
--- NOTE | 2018-10-16 04:12 | NUR ---
PATIENT RESTING: Patient resting quietly. No acute distress noted. Vital signs within normal range.
[2018-10-16] MEDS: D5/0.45 NS 1,000 ML IV SCH ×3 (04:14→20:57)
--- NOTE | 2018-10-16 06:07 | NUR ---
CLOSING NOTES PATIENT AWAKE, VITALS STABLE, DENIES ANY PAIN AND DISCOMFORT AT THIS TIME. ALL NEEDS ATTENDED TO. SAFETY AND FALL PRECAUTION MEASURES MAINTAINED. CALL LIGHT PLACED WITHIN REACH.
--- NOTE | 2018-10-16 07:28 | NUR ---
rn opening note Report was endorsed by night nurse. Patient appears to be resting with both eyes closed breathing is equal and non labored. Patient has all safety precautions in place. call light is with him. Patient shows no signs of any distress. Patient is close to nurses station no other needs at this time will continue to monitor.
[2018-10-16 08:14] VITALS: BP_SYST 114
[2018-10-16] MEDS: azaTHIOprine 50 MG TABLET PO SCH (08:15)
[2018-10-16] MEDS: SPIRONOLACTONE 50 MG TABLET (ALDACTONE) PO SCH (08:15)
[2018-10-16] MEDS: FUROSEMIDE 40 MG TABLET PO SCH (08:15)
[2018-10-16] MEDS: RIFAXIMIN 550 MG TABLET PO SCH ×2 (08:15→21:00)
[2018-10-16] MEDS: PANTOPRAZOLE SODIUM 40 MG TAB PO SCH ×2 (08:15→20:59)
[2018-10-16] MEDS: PREDNISONE 10 MG TABLET PO SCH (08:15)
[2018-10-16] MEDS: DOXYCYCLINE HYCLATE 100 MG CAPSULE PO SCH ×2 (08:15→21:00)
--- NOTE | 2018-10-16 08:16 | NUR ---
rn ROUNDING/ REFUSING MEDICATION AND LAB WORK Patient is refusing all medication and lab work patient was educated on importance of lab work and medication but is still refusing. Patient has no complaints of any pain at this time. Patient educated personal injury law specialist light for assistance. Call light is with patient, patient is close to nurses station. Patient has call light with him. Patient states he is waiting for to eat breakfast. no other needs at this time will continue to monitor.
--- NOTE | 2018-10-16 08:52 | NUR ---
DC Planning: Received call from [facility] transfer ctr: " the pt is medically accepted, but is pending insurance approval/financial clearance for the admission." The center will also need the transfer back agreement to accompany the transfer.
--- NOTE | 2018-10-16 09:39 | NUR ---
Pt note Patient refusing therapy at this time; nursing made aware.
--- NOTE | 2018-10-16 10:27 | NUR ---
DC Planning: s/w [facility] about the transfer to tertiary . She will consult with her Medical MD and will need peer to peer for the transfer approval. Dr. Woodson/GI contact number provided. Sarah will call back with the outcome.
--- NOTE | 2018-10-16 10:30 | NUR ---
rn rounding Patient appears to be resting with both eyes closed no signs of any distress, breathing is equal and non labored. Patient has call light with him. Patient is close to nurses station. Patient has no other needs at this time will continue to monitor.
--- NOTE | 2018-10-16 12:08 | NUR ---
RN rounding Family is at bed side. Patient is awake and alert, laying in bed. Patient is now stating he will have blood work done. Patient pérez no complaints at this time. All safety precautions in place. all safety precautions in place, call light is with him.no other needs at this time. will continue to monitor.
[2018-10-16 12:19] LABS: BASOPHILS % (AUTO) 0.5 % (0.0-2.0); EOSINOPHILS % (AUTO) 0.3 % (0.0-4.0); HEMATOCRIT 26.6 % (36-54); HEMOGLOBIN 8.8 g/dL (14.0-18.0); LYMPHOCYTES # (AUTO) 1.8 K/uL (1.0-5.5); MEAN CORPUSCULAR HEMOGLOBIN 32 pg (27-31); MEAN CORPUSCULAR HGB CONC 33 % (32-36); MEAN CORPUSCULAR VOLUME 98 fL (79.0-98.0); MONOCYTES # (AUTO) 0.2 K/uL (0.0-1.0); MONOCYTES % (AUTO) 6.1 % (1.7-9.3); NEUTROPHILS # (AUTO) 1.8 K/uL (1.8-7.7); NEUTROPHILS % (AUTO) 47.1 % (40.0-70.0); RED BLOOD CELL COUNT(AUTO) 2.73 MIL/uL (4.2-6.2); RED CELL DISTRIBUTION WIDTH 30.7 % (9.0-15.0); WHITE BLOOD COUNT (AUTO) 3.9 K/uL (4.8-10.8)
[2018-10-16 12:27] VITALS: BP_SYST 127
[2018-10-16 12:42] LABS: PLATELET COUNT (AUTO) 43 K/uL (130-430)
[2018-10-16 12:48] LABS: ALBUMIN 2.2 g/dL (3.4-4.8); CALCIUM 8.2 mg/dL (8.4-11.0); CREATININE 1.03 mg/dL (0.55-1.30); POTASSIUM 3.7 mmol/L (3.5-5.1)
--- NOTE | 2018-10-16 12:49 | NUR ---
Timothy Maldonado for critical lab
[2018-10-16 12:54] LABS: TOTAL BILIRUBIN 25.8 mg/dL (0.0-1.0)
--- NOTE | 2018-10-16 13:05 | NUR ---
Dr. Maldonado Spoke with MD regard critical labs no further orders were given. Patient is awake and alert, sitting in bed no signs of any distress, breathing is equal and non labored. Patient has all safety precautions in place.Call light is with patient. family is at bed side will continue to monitor.
--- NOTE | 2018-10-16 13:55 | NUR ---
DC Planning: LVM f/u the peer to peer decision with [facility] # [phone]. Addendum: 10/16/18 at 1402 by Albino Lindsay RN Met with dr. Adam (covers dr. Woodson today) and pt's son Julius, DCP per dr. Adam : if pt. is not excepted at the tertiary hp, then the pt needs to transfer to contracted hp to continue searching for the tertiary hp. The pt can not be discharged home. Cm to update dcp to [facility].
--- NOTE | 2018-10-16 15:15 | NUR ---
rn rounding Patient is awake and alert, no signs of any distress,breathing is equal and non labored. Patient has no complaints at this time. Patient has family at bed side. no other needs at this time will continue to monitor.
--- NOTE | 2018-10-16 16:19 | NUR ---
Dc Planning: Peer to peer by dr. Adam and medical numerical control operator at [facility], reported back from [facility] that both mds agreed dcp for liver transplant eval out patient follow up. Cm to verify with dr. Adam or pcp for dc order. Mean while, nayely faxed the referral package to [facility] /Transfer ctr attn : AC, fax# [phone], tel # [phone] requesting liver transplant evaluation. Per Sarah, [facility] is the [facility] contracted HP. >> CM contacted [facility]/Abdominal Transplant unit # [phone]. Per Melia, in order to get the outpatient appointment , it would take up to 3 weeks. ( [facility] will contact the pt in one week, then two week after are to review the case ,then the appointment will be giving out.) She suggested to send info to the transfer ctr, If not accepted as inpatient then the pt will be referred to the out patient clinic.
[2018-10-16 16:24] VITALS: BP_SYST 117
--- NOTE | 2018-10-16 17:15 | NUR ---
RN rounding Patient is awake and alert, sitting in bed, no signs of any distress, breathing is equal and non labored. Patient has no complaints at this time. Patient has all safety precautions in place. Call light is with patient. Patient is close to nurses station. Patients family is at bed side will continue to monitor.
--- NOTE | 2018-10-16 18:32 | NUR ---
rn closing note Patient is awake and alert, sitting in bed no signs of any distress, breathing is equal and non labored. Patient has all safety precautions in place. Call light is with patient educated to use for assistance. Patient is close to nurses station. will endorse report to [facility] night nurse. no other needs at this time. will continue to monitor. Addendum: 10/16/18 at 1906 by Dorene Virgen RN spoke with Viri from [facility] states we need IN, CMP order to get the MELD score dr. Maldondao at nurses station orders were received. Please fax results to [phone] or call at [phone]
[2018-10-16 19:45] VITALS: BP_SYST 110
--- NOTE | 2018-10-16 19:49 | NUR ---
INITIAL NOTE AT INITIAL ASSESSMENT, PATIENT IS RESTING IN BED, STABLE, NO SIGNS OF RESPIRATORY DISTRESS. PATIENT VERBALIZES NO PAIN. PLAN OF CARE FOR THE EVENING IS COMMUNICATED WITH THE PATIENT. CALL LIGHT- TEACH BACK IS SUCCESSFUL. BED IS LOCKED, ALARMED, AND AT THE LOWEST LEVEL. FALL AND SAFETY PRECAUTIONS WILL BE TAKEN THROUGHOUT THE SHIFT.
--- NOTE | 2018-10-16 21:49 | NUR ---
PATIENT REFUSES PO MEDS PATIENT IS REFUSING PO MEDS AT THIS TIME, HE VERBALIZES HE HAS A "HARD TIME SWALLOWING" MD WILL BE PAGED. PATIENT IS OTHERWISE STABLE, NO SIGNS OF RESPIRATORY DISTRESS. CALL LIGHT WITHIN REACH. BED IS LOCKED, ALARMED, AND AT THE LOWEST LEVEL.
--- NOTE | 2018-10-16 22:23 | NUR ---
LOUIS MCKENNA Addendum: 10/16/18 at 2226 by Abbey Sykes CNA DOCTOR COCHRAN IS DOUBLE SURFACE OPERATOR
--- NOTE | 2018-10-16 22:30 | NUR ---
COMMUNICATION W/ DR. JAIDEN HWANG (PERSONAL LINES APPRAISER FOR DR. LATIF) HAS PAGED BACK AT THIS TIME, PATIENT'S REQUEST FOR ALBUMIN IV IS DENIED; VERBALIZES HE WOULD LIKE TO WAIT FOR DR. LATIF TO SEE PATIENT IN THE AM FOR ORDERS. REQUEST TO CHANGE PATIENT DIET GRANTED. ORDERS READ BACK, VERIFIED, AND ENTERED.
--- NOTE | 2018-10-16 23:49 | NUR ---
NOTE PATIENT IS SLEEPING, STABLE, NO SIGNS OF RESPIRATORY DISTRESS. CALL LIGHT WITHIN REACH. BED IS LOCKED, ALARMED, AND AT THE LOWEST LEVEL.
--- NOTE | 2018-10-17 00:30 | NUR ---
NEW IV OLD IV IS NOTED TO BE INFILTRATED, NEW IV PLACED ON PATIENT'S RIGHT FOREARM, 22 GAUGE. 10 MLS NS FLUSHED WITH NO RESISTANCE. PATIENT TOLERATED WELL.
[2018-10-17 01:23] VITALS: BP_SYST 108
[2018-10-17 06:38] LABS: BASOPHILS % (AUTO) 0.3 % (0.0-2.0); EOSINOPHILS % (AUTO) 0.1 % (0.0-4.0); HEMATOCRIT 25.6 % (36-54); HEMOGLOBIN 8.5 g/dL (14.0-18.0); LYMPHOCYTES % (AUTO) 43.9 % (20.5-51.5); MEAN CORPUSCULAR HEMOGLOBIN 33 pg (27-31); MEAN CORPUSCULAR HGB CONC 33 % (32-36); MEAN CORPUSCULAR VOLUME 98 fL (79.0-98.0); MONOCYTES # (AUTO) 0.3 K/uL (0.0-1.0); MONOCYTES % (AUTO) 6.3 % (1.7-9.3); NEUTROPHILS # (AUTO) 2.3 K/uL (1.8-7.7); NEUTROPHILS % (AUTO) 49.4 % (40.0-70.0); WHITE BLOOD COUNT (AUTO) 4.6 K/uL (4.8-10.8)
[2018-10-17 06:43] LABS: INR 1.2 (0.80-1.20); PROTHROMBIN TIME 12.3 SECS (9.5-12.5)
--- NOTE | 2018-10-17 06:50 | NUR ---
CLOSING NOTE PATIENT SLEPT WELL THROUGHOUT THE SHIFT. AT THIS TIME, PATIENT IS RESTING IN BED, STABLE, NO SIGNS OF RESPIRATORY DISTRESS. CALL LIGHT WITHIN REACH. BED IS LOCKED, ALARMED, AND AT THE LOWEST LEVEL. FALL AND SAFETY PRECAUTIONS HAVE BEEN IN PLACE THROUGHOUT THE SHIFT. WILL CONTINUE TO MONITOR UNTIL SHIFT REPORT IS GIVEN AT BEDSIDE TO AM NURSE.
[2018-10-17 06:54] LABS: CALCIUM 8.3 mg/dL (8.4-11.0); CREATININE 1.02 mg/dL (0.55-1.30); POTASSIUM 3.4 mmol/L (3.5-5.1)
[2018-10-17 07:35] VITALS: BP_SYST 119
[2018-10-17 07:42] LABS: PLATELET COUNT (AUTO) 49 K/uL (130-430)
[2018-10-17] MEDS: D5/0.45 NS 1,000 ML IV SCH ×2 (07:52→10:36)
--- NOTE | 2018-10-17 07:55 | NUR ---
Opening notes, Received pt in bed, pt is aaox4, denies pain, no sob, no resp distress. vitals wnl. afebrile. pt appears very jaudice. iv fluids infusing well. iv access intact and patent. no s/s of swelling and infiltration. safety precaution in place. call light in reach, bed in low position. will cont to monitor.
[2018-10-17] MEDS: RIFAXIMIN 550 MG TABLET PO SCH ×2 (09:00→21:12)
[2018-10-17] MEDS: azaTHIOprine 50 MG TABLET PO SCH (09:00)
[2018-10-17] MEDS: DOXYCYCLINE HYCLATE 100 MG CAPSULE PO SCH ×2 (09:00→21:12)
[2018-10-17] MEDS: PREDNISONE 10 MG TABLET PO SCH (09:00)
[2018-10-17] MEDS: PANTOPRAZOLE SODIUM 40 MG TAB PO SCH ×2 (09:00→21:12)
[2018-10-17] MEDS: FUROSEMIDE 40 MG TABLET PO SCH (09:00)
[2018-10-17] MEDS: SPIRONOLACTONE 50 MG TABLET (ALDACTONE) PO SCH (09:00)
--- NOTE | 2018-10-17 10:25 | NUR ---
spoke with case margy lima re transfer to [facility]. clarence said she is faxing the labs to [facility] now.
--- NOTE | 2018-10-17 11:14 | NUR ---
DC Planning: Faxed updated info to AC at [facility] fax # [phone]. Per AC: 1. Still waiting for an accepting MD, 2. Financial clearance from [facility], 3. Transfer back Agreement . >> TENNILLE informed Sarah /[facility] that [facility] might take the pt as inpatient. I asked for inpatient transfer authorization. Sarah stated " the pt is not authorized for inpt transfer as per peer to peer yesterday". The pt.'s recommended to be discharged home and f/u as out patient. Per Sarah, [facility] does not cover outpatient, Medicare Part B is at risk so that [facility] is unable to assist with the outpatient arrangement. >> TENNILLE notified dr. Adam this am, per md and his progress note yesterday stated that "the [facility] medical chemist - he would prefer outpatient evaluation. He will arrange for urgent outpatient liver evaluation at [facility] and home health." Dr. Adam stated pt is not safe for discharged home and needs to been seen by Baby Formula Worker as soon as possible. ( see dr. Adam progress note on 10/16/18) . CM LVM for dr. Adam to consider to do another peer to peer with [facility] again to possible obtain the inpatient authorization for [facility].
--- NOTE | 2018-10-17 11:25 | NUR ---
P.T. NOTES AFTER MULTIPLE ATTEMPTS PATIENT REFUSED TO PARTICIPATE W/ P.T., CONTINUES TO STATE NOT FEELING WELL, RN MADE AWARE.
[2018-10-17 12:07] VITALS: BP_SYST 121
--- NOTE | 2018-10-17 12:20 | NUR ---
DC Planning: Received call from Sarah requesting pt transfer to [facility]. CM notified pt who is agreed with the transfer. Dr. Maldonado made aware and order okay to transfer to ins. network.
--- NOTE | 2018-10-17 13:45 | NUR ---
RECEIVED CALL FROM [facility] PHONE [phone] FAX [phone], REQUESTING UPDATE ON PT LABS.
--- NOTE | 2018-10-17 14:18 | NUR ---
Dietitian Recommendations * Recommend clear liquid diet LP, RD Please refer to Nutrition Assessment for details.
--- NOTE | 2018-10-17 14:26 | NUR ---
DC Planning: [facility]: per Minda/Transfer ctr: "Dr. Lozano is accepted, the pt is a good candidate for liver transplant evaluation. Dr Lozano wants the pt here". >> CM updated Sarah for consideration transferring to [facility]. Per Sarah: the decision is up to medical md/dr. Dougherty. >> Dr. Hernández made aware of the above info and provided him with dr. Dougherty contact number [phone] for another peer to peer.
[2018-10-17 16:50] VITALS: BP_SYST 121
[2018-10-17] MEDS ORDERED: POTASSIUM CHLORIDE 40 MEQ in NS 250 ML IV ONE (17:15)
--- NOTE | 2018-10-17 17:20 | NUR ---
DC Planning: Transfer approved to [facility]: Per Sarah/[facility] the pt is approved for inpatient admission at [facility]. She will call Dl/financial dept to give authorization. Also provided auth for ambulance # [id number] may use contracted ambulance : [facility], [facility], [facility] or Emergency or any ambulance with auth if can not get any contracted ambulance for the transfer. >> CM notified ROSALIND Emmanuel, RN Gareth for possible transfer [facility] call nursing unit to give bed and destination unit. DC Package delivered to nursing station. Cm requested [facility] to get CD/radiology/GI/cardiology to include in the dc package. >> Pt and family and son/Julius made aware.
--- NOTE | 2018-10-17 18:48 | NUR ---
Transfer to [facility]: Received call from Gemma of [facility], gemma said bed available and they will be ready to accept the pt at 8am. pt to leave at 6-630am. Phone # of Gemma is [phone] pt going to room [address] ([address] [place] [address]) , call to give report in am #[phone]. need copy of chart and cd of any imaging test.
--- NOTE | 2018-10-17 19:41 | NUR ---
closing notes, endorsed to night rnshamika. pt has been stable, no c/o of pain. krider and ffp given as ordered. pt to be dsicharged to [facility] in am. pt's son nati is aware and given relevant information.
--- NOTE | 2018-10-17 19:42 | NUR ---
OPENING NOTE RECEIVED CARE OF PT. PT IS AAOX4, SITTING UP IN BED WITH FAMILY AT BEDSIDE. IVF ARE INFUSING ORDERED. NO S/S OF ACUTE DISTRESS, BREATHING IS UNLABORED, NO SOB NOTED. SKIN APPEARS TO BE JAUNDICED. PT DENIES PAIN AT THIS TIME. PT ORIENTED TO USE OF CALL LIGHT AND ENCOURAGED TO CALL FOR ASSISTANCE. SAFETY PRECAUTIONS ARE IN PLACE: BED IS LOCKED IN LOWEST POSITION, CALL LIGHT IS WITH PT, SIDE RAILS UP X2, BED ALARM ON, CLOSE TO NURSES STATION. WILL MONITOR.
[2018-10-17 20:00] VITALS: BP_SYST 122
--- NOTE | 2018-10-17 21:12 | NUR ---
SCHEDULED MED PASS PT GIVEN SCHEDULED PO MEDICATIONS CRUSHED AND WITH APPLE JUICE. MEDICATIONS AND POTENTIAL SIDE EFFECTS EXPLAINED TO PT. SAFETY MAINTAINED. WILL MONITOR.
--- NOTE | 2018-10-17 23:05 | NUR ---
BEDSIDE COMMODE PT ASSISTED TO USE BEDSIDE COMMODE WITH NURSE ASSIST. PT NOTED TO BE WEAK. PT CLEANED AND REPOSITIONED IN BED WITH PILLOW SUPPORT. SAFETY PRECAUTIONS MAINTAINED. WILL MONITOR.
--- NOTE | 2018-10-18 01:32 | NUR ---
ROUNDS: PT SLEEPING IN BED WITH EYES CLOSED. VISIBLE SYMMETRICAL RISE AND FALL OF CHEST TO ROOM AIR. PT APPEARS COMFORTABLE. IVF ARE INFUSING AT ORDERED RATE, NO SIGN OF INFILTRATION AT IV SITE. SAFETY PRECAUTIONS ARE IN PLACE: BED IS LOCKED IN LOWEST POSITION, CALL LIGHT IS WITH PT, SIDE RAILS UP X2, BED ALARM ON, CLOSE TO NURSES STATION. WILL MONITOR.
[2018-10-18 02:20] VITALS: BP_SYST 119
--- NOTE | 2018-10-18 03:45 | NUR ---
SLEEPING PT RESTING IN BED WITH EYES CLOSED. VISIBLE SYMMETRICAL RISE AND FALL OF CHEST TO ROOM AIR. NO S/S OF ACUTE DISTRESS, NO SOB NOTED. PT APPEARS TO BE COMFORTABLE. SAFETY PRECAUTIONS ARE IN PLACE. WILL MONITOR.
--- NOTE | 2018-10-18 04:00 | NUR ---
Called [facility], dialed , s/w Colleen ROMERO @ [phone].
--- NOTE | 2018-10-18 05:15 | NUR ---
Paged Abel Mckeon s/w Margot
--- NOTE | 2018-10-18 05:24 | NUR ---
SPOKE TO DR. RAMONA GREENE GAVE ORDER TO DISCHARGE PATIENT TO [facility] AND CONTINUE ALL MEDICATIONS. WILL CARRY OUT.
--- NOTE | 2018-10-18 05:33 | NUR ---
REFUSING TO BE CLEANED/REFUSING WOUND PHOTO PT REFUSING TO BE CLEANED AND TO HAVE A FRESH GOWN PUT ON. PT ALSO REFUSING TO HAVE WOUND ON SACRUM PHOTOGRAPHED. EDUCATION PROVIDED ON THE IMPORTANCE OF WOUND DOCUMENTATION AND ON HAVING A CLEAN GOWN AND BED. PT CONTINUES TO REFUSE.
--- NOTE | 2018-10-18 06:00 | NUR ---
Called several ambulance services for transport. None of them can sheepskin pickler patient at scheduled time. Will continue to call
--- NOTE | 2018-10-18 06:05 | NUR ---
Called [address] at [phone] and spoke to Charge Nurse Akbar. Informed her that scheduled ambulance service cancelled transport service this AM and patient cannot arrive at 8am as scheduled. Per Akbar, patient is not scheduled for surgery today and is going for a liver transplant eval and will be inpatient there as well. The time of 8am was given to hold the bed, per Akbar, they will continue to hold the bed for the patient since transport cancelled. Informed her that I will call and schedule a later ambulance transport and call her back with an update. She is there until 7:30am.
--- NOTE | 2018-10-18 06:17 | NUR ---
TRANSPORT SCHEDULED WITH [facility] . SPOKE TO DELIA. GAVE HIM INSURANCE AND AUTH #. BLS PICK-UP TIME 09:30AM TO [address] [id number]. Addendum: 10/18/18 at 0634 by Velma Raza RN PATIENT TO GO TO [address] [place] [id number]
--- NOTE | 2018-10-18 06:19 | NUR ---
CALLED [facility] AND SPOKE TO JUANA CLERK OF COURT. INFORMED HER THAT BLS TRANSPORT IS SCHEDULED AND THEY WILL MOTHER'S HELPER PATIENT FROM HERE AT 09:30AM. SHE ASKED WHO WILL CALL AND GIVE THEM REPORT, INFORMED HER THAT THE DAY SHIFT RN WILL CALL THEM.
--- NOTE | 2018-10-18 06:23 | NUR ---
CHURN OPERATOR MARGARINE ASHLEE, PRIMARY RN BRENDA, AND DUANE RODRIGUEZ AWARE OF SITUATION AND TRANSPORT PICKUP TIME CHANGE. JANA GUTIERREZ INFORMED PATIENT AND PATIENT'S OF CHANGE.
--- NOTE | 2018-10-18 06:27 | NUR ---
CLOSING NOTE PT RESTING IN BED WITH FAMILY AT BEDSIDE. PT AND PT'S FAMILY HAVE BEEN UPDATED ON THE POC. PT SHOWS NO S/S OF ACUTE DISTRESS, BREATHING IS UNLABORED TO ROOM AIR. IVF ARE INFUSING AT ORDERED RATE. SAFETY PRECAUTIONS ARE IN PLACE. ALL NEEDS MET DURING SHIFT. WILL CONTINUE TO MONITOR UNTIL PT CARE IS ENDORSED TO DAY SHIFT RN.
[2018-10-18 07:30] VITALS: BP_SYST 124
--- NOTE | 2018-10-18 08:00 | NUR ---
Opening notes, Received pt in bed, pt is aaox4, denies pain, no sob, no resp distress. vitals wnl. afebrile. pt appears very jaudiced. iv fluids infusing well. iv access intact and patent. no s/s of swelling and infiltration. safety precaution in place. call light in reach, bed in low position. will cont to monitor.
[2018-10-18] MEDS: SPIRONOLACTONE 50 MG TABLET (ALDACTONE) PO SCH (08:20)
[2018-10-18] MEDS: FUROSEMIDE 40 MG TABLET PO SCH (08:21)
[2018-10-18] MEDS: PREDNISONE 10 MG TABLET PO SCH (08:21)
[2018-10-18] MEDS: DOXYCYCLINE HYCLATE 100 MG CAPSULE PO SCH (08:21)
[2018-10-18] MEDS: azaTHIOprine 50 MG TABLET PO SCH (08:21)
[2018-10-18] MEDS: RIFAXIMIN 550 MG TABLET PO SCH (08:21)
[2018-10-18] MEDS: PANTOPRAZOLE SODIUM 40 MG TAB PO SCH (08:21)
[2018-10-18 08:25] VITALS: BP_SYST 124
--- NOTE | 2018-10-18 08:58 | NUR ---
PATIENT REFUSED PO MEDICATIONS AGAIN. PER REPORT PT ALSO REFUSED LAB DRAWS THIS MORNING.
--- NOTE | 2018-10-18 09:45 | NUR ---
SBAR REPORT GIVEN TO RN. PHILLIPS OF [facility]. PT ALSO ENDORSED TO AMBULANCE STAFF WHO ARE HERE TO PROJECT COORDINATOR RN PATIENT.
--- NOTE | 2018-10-18 09:50 | NUR ---
LEFT TELEPHONE MESSAGE TO FAMILY THAT PT IS BEING PICKED UP THIS TIME.
--- NOTE | 2018-10-18 10:00 | NUR ---
D/C Patient Patient given medication reconciliation form and D/C instructions. Exit Care provided. Patient verbalized understanding. discussed reason for transfer to [facility]. Patient taken by ambulance staff. Patient in stable condition, ID band removed. IV catheter kept as requested by receiving [facility] nurse Alejo. Patient educated on pain management. All belongings sent with patient.
== END 2018-10-18 09:50 | disposition short-term general hospital (02) | DRG 279 ==
LOC: SED 17:17 → SMU 10-14 00:01
PROVIDERS: ADMIT Preventive Medicine Preventive Medicine/Occupational Environmental Medicine; ATTEND Preventive Medicine Preventive Medicine/Occupational Environmental Medicine
PROC: 30233K1 Transfusion of Nonautologous Frozen Plasma into Peripheral Vein, Percutaneous Approach (ICD-10-PCS; principal; 2018-10-17)
DX: K72.00 Acute and subacute hepatic failure without coma (principal); E43 Unspecified severe protein-calorie malnutrition; G93.40 Encephalopathy, unspecified; D61.818 Other pancytopenia; E87.0 Hyperosmolality and hypernatremia; D68.9 Coagulation defect, unspecified; D69.6 Thrombocytopenia, unspecified; E87.1 Hypo-osmolality and hyponatremia; K74.60 Unspecified cirrhosis of liver; E87.6 Hypokalemia; J45.909 Unspecified asthma, uncomplicated; R73.9 Hyperglycemia, unspecified; R74.0 Nonspecific elevation of levels of transaminase and lactic acid dehydrogenase [LDH]; E88.09 Other disorders of plasma-protein metabolism, not elsewhere classified; L89.899 Pressure ulcer of other site, unspecified stage; D72.819 Decreased white blood cell count, unspecified; I12.9 Hypertensive chronic kidney disease with stage 1 through stage 4 chronic kidney disease, or unspecified chronic kidney disease; N18.3 Chronic kidney disease, stage 3 (moderate); Z68.1 Body mass index [BMI] 19.9 or less, adult; Z88.8 Allergy status to other drugs, medicaments and biological substances; Z91.018 Allergy to other foods; Z79.899 Other long term (current) drug therapy
CPT/HCPCS: 36415; 80053; 81000-TC; 82140-TC; 83735-TC; 83880; 84100-TC; 84484; 85007; 85025; 85027; 85610-TC; 85730-TC; 86886; 86900; 86901; 87081; 87086; 96374; 97112-GP; 97116-GP; 97530-GP; 99285; A5061; J2405; J3480; J7030; J7050; J7060; J7500; J7512; P9046; P9059